=== PATIENT | male | born 1950 | race Caucasian/White ===

== ENCOUNTER 2016-09-20 12:32 | Day surgery (SDC) | payer OTHER ==
[2016-09-20] MEDS ORDERED: diphenhydrAMINE 25 MG CAP PO ONE (12:42)
[2016-09-20] MEDS ORDERED: fentaNYL 100 MCG/2 ML INJ IVP ONE (12:42)
[2016-09-20] MEDS ORDERED: NS 1,000 ML IV ONE (12:42)
[2016-09-20] MEDS ORDERED: MIDAZOLAM 2 MG/2 ML VIAL IVP ONE (12:42)
[2016-09-20] MEDS ORDERED: ASPIRIN EC 325 MG TAB PO ONE (12:42)
[2016-09-20] MEDS ORDERED: BENZOCAINE UNIT DOSE SPRAY HURRICAINE MM ONE (12:42)
[2016-09-20] MEDS ORDERED: DIAZEPAM 5 MG TAB PO ONE (12:42)
[2016-09-20] MEDS ORDERED: FAMOTIDINE 20 MG TAB PO ONE (12:42)
--- NOTE | 2016-09-20 13:09 | CPEKG ---
Heart Rate: 70 RR Interval: 857 QRSD Interval: 100 QT Interval: 452 QTC Interval: 488 QRS Novice: 3 T Wave Novice: -51 EKG Severity - ABNORMAL ECG - EKG Impression: ATRIAL FIBRILLATION EKG Impression: VENTRICULAR BIGEMINY EKG Impression: NONSPECIFIC T ABNORMALITIES, INFERIOR LEADS Electronically Signed By: Nikko Campa 21-Sep-2016 12:46:56
[2016-09-20 13:42] LABS: % IMMATURE GRANULYOCYTES 0.3 % (0.0-1.1); ABSOLUTE IMMATURE GRANULOCYTES 0.02 10^3/uL (0.00-0.10); ADD DIFF? NO; ADD MORPH? NO; ADD SCAN? NO; ATYPICAL LYMPHOCYTE FLAG 20 (0-99); FRAGMENT RBC FLAG 0 (0-99); HEMATOCRIT 47.5 % (40.0-51.0); HEMOGLOBIN 16.5 g/dL (13.7-17.5); LEFT SHIFT FLG 0 (0-99); LIPEMIA HEMOLYSIS FLAG 90 (0-99); MEAN CELL HEMOGLOBIN 32.2 pg (27.9-34.1); MEAN CELL HEMOGLOBIN CONCENTR. 34.7 g/dL (32.4-36.7); MEAN CELL VOLUME 92.6 fL (81.5-99.8); MEAN PLATELET VOLUME 9.7 fL (8.7-11.7); PLATELET CLUMPS FLAG 10 (0-99); PLATELET COUNT 159 10^3/uL (150-400); RED BLOOD CELL COUNT 5.13 10^6/uL (4.40-6.38); RED CELL DISTRIBUTION WIDTH 13.2 % (11.5-15.2)
[2016-09-20 13:50] LABS: INR 1.16 (0.83-1.16); PROTIME(PATIENT) 14.8 SEC (12.0-15.0)
[2016-09-20 14:10] LABS: ANION GAP 8 mEq/L (8-16); CALCIUM 9.1 mg/dL (8.5-10.4); CARBON DIOXIDE 23 mEq/l (22-31); CHLORIDE 110 mEq/L (97-110); CHOLESTEROL 207 mg/dL (140-220); CHOLESTEROL/HDL RATIO 4.31 RATIO (1.00-4.97); CREATININE 0.9 mg/dL (0.7-1.3); GLOMERULAR FILTRATION RATE > 60; GLUCOSE 88 mg/dL (70-100); HIGH DENSITY LIPOPROTEIN 48 mg/dL (40-65); LOW DENSITY LIPOPROTEIN 139 mg/dL (80-100); NON-HIGH DENSITY LIPOPROTEIN 159 mg/dL (90-129); SODIUM 141 mEq/L (134-144); TRIGLYCERIDE 104 mg/dL (40-150); VERY LOW DENSITY LIPOPROTEINS 20 mg/dL (8-25)
[2016-09-20] MEDS ORDERED: fentaNYL 100 MCG/2 ML INJ ONE (14:18)
[2016-09-20] MEDS ORDERED: IOPAMIDOL (ISOVUE 370) 100 ML BTL IV ONE (14:18)
[2016-09-20] MEDS ORDERED: LIDOCAINE 1% 30 ML SDV ONE (14:18)
[2016-09-20] MEDS ORDERED: MIDAZOLAM 2 MG/2 ML VIAL ONE (14:18)
[2016-09-20] MEDS ORDERED: PROPOFOL 200 MG/20 ML VIAL ONE (14:28)
--- NOTE | 2016-09-20 15:46 | PDDXCAT ---
Diagnostic Cath Note - . Date: 09/20/16 Fan Engine Engineer: Dipesh Indication: other (sob,vhd) - Procedure Access: right groin Procedure: left heart catheterization, coronary angiography, left ventriculogram , right heart catheterization - Materials Left Heart Cath materials: standard multipack (JL4, JR4, pigtail) Right Heart Cath size: 7F Right Heart Cath materials: PWP catheter - Findings-Left Heart Catheterization LM: 1. normal LAD: 1. normal LCX: 1. normal RCA: 1. large ectactic dominant normal Ramus: 1. normal EDP: 15mmhg LVEF: 40% Wall motion: 1. diffuse hypokinectic - Findings-Right Heart Catheterization RA: 8 RV: 33/8 PA: 33/18 CO: 5.8 CI: 2.3 Complications: none Estimated blood loss: <50ml Assessment: 1. mild non-ischemic cm ...well compensated Plan: 1. continue medical management 2. continue cpap 3.?pulmonary consult
[2016-09-20] MEDS ORDERED: OXYCODONE/APAP 5/325 TAB PO PRN (15:51)
[2016-09-20] MEDS ORDERED: ONDANSETRON 4 MG/2 ML VIAL IVP PRN (15:51)
[2016-09-20] MEDS ORDERED: HYDROCODONE/APAP 5/325 TAB PO PRN (15:51)
[2016-09-20] MEDS ORDERED: ATROPINE SULFATE 1 MG/10 ML SYR IVP PRN (15:51)
[2016-09-20] MEDS ORDERED: NITROGLYCERIN 0.4 MG BTL SL PRN (15:51)
[2016-09-20] MEDS ORDERED: ATROPINE SULFATE 1 MG/10 ML SYR ONE (15:54)
--- NOTE | 2016-09-20 15:58 | ECHO ---
[id number] + + [address] : : [facility] [address] : : [phone] + Transesophageal Echocardiographic Report + -----+ :Name: GINA GARCIA JStudy Date: 09/20/2016 02:11 PM : : Hospital Admission Number: [id number] Location : [facility]: :: 1950 Gender: Male : :Age: 66 yrs Race: : :Reason For Study: evluate heart valves : :History: pre-cath : + -----+ LV Left ventricular systolic function is mildly reduced. Ejection Fraction = 40-45%. Atria Bi-atrial enlargement. Injection of contrast documented no interatrial shunt. Mitral Valve The mitral valve leaflets appear thickened, but open well. There is mild mitral regurgitation. Aortic Valve The aortic valve is trileaflet. The aortic valve opens well. Moderate aortic regurgitation. Tricuspid Valve The tricuspid valve is normal in structure and function. There is mild tricuspid regurgitation. Pericardium trivial pericardial effusion. Conclusion A 2D transesophageal echocardiogram with Doppler and color flow Doppler was performed. Left ventricular systolic function is mildly reduced. Ejection Fraction = 40-45%. Bi-atrial enlargement. Injection of contrast documented no interatrial shunt. There is mild mitral regurgitation. Moderate aortic regurgitation. There is mild tricuspid regurgitation. trivial pericardial effusion. Final Reading Physician: Luc Tubbs signed on 09/20/2016 03:57 PM Ordering Physician: DC CARREON Performed By: Dc Carreon MD
== END 2016-09-20 19:14 | disposition home or self-care (01) ==
LOC: FCATH 12:32
PROVIDERS: ATTEND Internal Medicine Cardiovascular Disease
PROC: B2111ZZ Fluoroscopy of Multiple Coronary Arteries using Low Osmolar Contrast (ICD-10-PCS; principal; 2016-09-20)
PROC: 4A023N8 Measurement of Cardiac Sampling and Pressure, Bilateral, Percutaneous Approach (ICD-10-PCS; principal; 2016-09-20)
PROC: B2151ZZ Fluoroscopy of Left Heart using Low Osmolar Contrast (ICD-10-PCS; principal; 2016-09-20)
PROC: B246ZZ4 Ultrasonography of Right and Left Heart, Transesophageal (ICD-10-PCS; principal; 2016-09-20)
DX: I50.21 Acute systolic (congestive) heart failure (principal); I47.2 Ventricular tachycardia; I35.1 Nonrheumatic aortic (valve) insufficiency; E66.01 Morbid (severe) obesity due to excess calories; G47.33 Obstructive sleep apnea (adult) (pediatric); E78.00 Pure hypercholesterolemia, unspecified; I11.0 Hypertensive heart disease with heart failure; J44.9 Chronic obstructive pulmonary disease, unspecified
CPT/HCPCS: C1760; J0461; J1644; J2250; J2704; J3010; Q9967